=== PATIENT | female | born 1985 | race Caucasian/White ===

== ENCOUNTER 2016-03-06 20:20 | Inpatient (IN) | payer BC ==
[~2016-03-06] VITALS: Ht 170.2 cm; Wt 97.7 kg
[~2016-03-06 20:20] MED LIST: BACTRIM DS 8001 TAB PO; BUSPAR DIVIDOSE15 MG PO; BUSPAR5 MG PO; CEPHALEXIN500 M1 PO; IBU800 M1 PO; IRON TABLETS325 MG PO; MOTRIN 600600 MG/TAB PO; PERCOCET 325 MG1 TA2 PO; PRENATABS RX1 TAB PO; ZANTAC 7575 MG PO; ZOLOFT 100MG100 MG PO
[2016-03-06 21:15] LABS: BASO % 0.4 % (0.0-2.0); EOS # 0.3 (0.0-0.7); EOS % 4.2 % (0-4.0); GRAN # 5.2 (1.4-6.5); GRAN % 65.3 % (42.2-75.2); HEMOGLOBIN 8.8 g/dl (12.5-16.0); LYMPH # 1.9 (1.2-3.4); LYMPH % 23.3 % (20.0-51.0); MEAN CELL VOLUME 95 fl (80.0-100.0); MEAN CORPUSCULAR HEMOGLOBIN 31 pg (27.0-31.0); MEAN CORPUSCULAR HGB CONC 33 g/dl (33.0-37.0); MEAN PLATELET VOLUME 9.8 fl (7.4-10.4); MONO # 0.5 (0.1-0.6); MONO % 6.3 % (1.7-9.3); PLATELET COUNT 302 K/mm3 (130-400); RED BLOOD COUNT 2.83 M/mm3 (4.10-5.30); REDCELL DISTRIBUTION WIDTH-CV 14.3 % (11.5-14.5); WHITE BLOOD COUNT 7.9 K/mm3 (4.8-10.8)
[2016-03-06 21:26] LABS: ADJUSTED CALCIUM 9.6 mg/dL (8.4-10.2); ALBUMIN 3.1 gm/dL (3.5-5.0); BILIRUBIN,TOTAL 0.8 mg/dL (0.0-1.0); CALCIUM 8.9 mg/dL (8.4-10.2); CREATININE, serum 0.76 mg/dL (0.52-1.25); POTASSIUM 3.9 mmol/L (3.4-5.0); TOTAL PROTEIN 6.5 gm/dL (6.4-8.2)
[2016-03-06 22:00] VITALS: BP 130/70; PULSE 60; TEMP 97.9
[2016-03-07 03:00] VITALS: BP 123/56; PULSE 64; TEMP 98.8
[2016-03-07 07:43] VITALS: BP 125/75; PULSE 65; TEMP 98.1
[2016-03-07 09:54] LABS: BASO % 0.4 % (0.0-2.0); EOS # 0.3 (0.0-0.7); EOS % 4.7 % (0-4.0); GRAN # 4.9 (1.4-6.5); LYMPH # 1.2 (1.2-3.4); LYMPH % 17.3 % (20.0-51.0); MEAN CELL VOLUME 96 fl (80.0-100.0); MEAN CORPUSCULAR HGB CONC 32 g/dl (33.0-37.0); MEAN PLATELET VOLUME 9.5 fl (7.4-10.4); MONO # 0.4 (0.1-0.6); MONO % 5.2 % (1.7-9.3); PLATELET COUNT 272 K/mm3 (130-400); RED BLOOD COUNT 2.79 M/mm3 (4.10-5.30); REDCELL DISTRIBUTION WIDTH-CV 14.2 % (11.5-14.5); WHITE BLOOD COUNT 6.8 K/mm3 (4.8-10.8)
[2016-03-07 09:57] LABS: HEMATOCRIT 26.9 % (37.0-47.0); HEMOGLOBIN 8.6 g/dl (12.5-16.0); MEAN CORPUSCULAR HEMOGLOBIN 31 pg (27.0-31.0)
[2016-03-07 10:00] LABS: ADJUSTED CALCIUM 9.2 mg/dL (8.4-10.2); ALBUMIN 2.9 gm/dL (3.5-5.0); CALCIUM 8.3 mg/dL (8.4-10.2); CREATININE, serum 0.71 mg/dL (0.52-1.25); POTASSIUM 4.1 mmol/L (3.4-5.0); TOTAL PROTEIN 6.1 gm/dL (6.4-8.2)
[2016-03-07 12:16] VITALS: BP 122/60; PULSE 60; TEMP 98.5
[2016-03-07 16:35] VITALS: BP 130/61; PULSE 63; TEMP 98
[2016-03-07 21:00] VITALS: BP 121/56; PULSE 65; TEMP 98.2
[2016-03-08 03:30] VITALS: BP 118/55; PULSE 62; TEMP 98
[2016-03-08 07:24] LABS: BASO % 0.6 % (0.0-2.0); EOS # 0.3 (0.0-0.7); EOS % 5.5 % (0-4.0); GRAN # 2.8 (1.4-6.5); GRAN % 55.4 % (42.2-75.2); LYMPH # 1.5 (1.2-3.4); LYMPH % 29.9 % (20.0-51.0); MEAN CELL VOLUME 98 fl (80.0-100.0); MEAN CORPUSCULAR HGB CONC 32 g/dl (33.0-37.0); MEAN PLATELET VOLUME 9.5 fl (7.4-10.4); MONO # 0.4 (0.1-0.6); PLATELET COUNT 277 K/mm3 (130-400); RED BLOOD COUNT 2.78 M/mm3 (4.10-5.30); REDCELL DISTRIBUTION WIDTH-CV 14.3 % (11.5-14.5); WHITE BLOOD COUNT 5.1 K/mm3 (4.8-10.8)
[2016-03-08 07:27] LABS: HEMATOCRIT 27.1 % (37.0-47.0); HEMOGLOBIN 8.7 g/dl (12.5-16.0); MEAN CORPUSCULAR HEMOGLOBIN 31 pg (27.0-31.0)
[2016-03-08 07:34] LABS: ADJUSTED CALCIUM 9.5 mg/dL (8.4-10.2); ALBUMIN 2.9 gm/dL (3.5-5.0); CALCIUM 8.6 mg/dL (8.4-10.2); CREATININE, serum 0.75 mg/dL (0.52-1.25); POTASSIUM 4.4 mmol/L (3.4-5.0); TOTAL PROTEIN 6.1 gm/dL (6.4-8.2)
[2016-03-08 08:30] VITALS: BP 122/62; PULSE 74; TEMP 97.7
[2016-03-08] MEDS ORDERED: AMOXICILLIN 8751 TAB PO (08:38)
== END 2016-03-08 10:12 | disposition home or self-care (01) | DRG 776 ==
LOC: COL.ER 20:20 → OB 20:52
PROVIDERS: Emergency Medicine; Obstetrics & Gynecology
DX: O90.2 Hematoma of obstetric wound (principal); D62 Acute posthemorrhagic anemia; O86.0 Infection of obstetric surgical wound; L03.311 Cellulitis of abdominal wall; O90.81 Anemia of the puerperium; O99.345 Other mental disorders complicating the puerperium; F32.9 Major depressive disorder, single episode, unspecified; O99.73 Diseases of the skin and subcutaneous tissue complicating the puerperium; L81.7 Pigmented purpuric dermatosis
CPT/HCPCS: OP; G0378; J2543; J7030; J7050; J7120

== ENCOUNTER 2019-09-05 11:42 | Inpatient (IN) | payer BC ==
[2019-09-05] VITALS (26 sets, daily range): BP systolic 118–162; BP diastolic 69–96; PULSE 61–101; TEMP 97.7–98.4
[~2019-09-05] VITALS: Ht 170.3 cm; Wt 234.8 kg
[~2019-09-05 11:42] MED LIST changes: +AMOXICILLIN 8751 TAB PO
[2019-09-05] MEDS ORDERED: BUSPAR DIVIDOSE15 MG PO (13:05)
[2019-09-05] MEDS ORDERED: PRENATAL TABLET PO (13:06)
[2019-09-05 13:22] LABS: BASO % 0.2 % (0.0-2.0); EOS # 0.1 (0.0-0.7); EOS % 0.9 % (0-4.0); GRAN % 77.3 % (42.2-75.2); HEMATOCRIT 37.2 % (37.0-47.0); LYMPH # 1.7 (1.2-3.4); LYMPH % 14.8 % (20.0-51.0); MEAN CELL VOLUME 93 fl (80.0-100.0); MEAN CORPUSCULAR HEMOGLOBIN 32 pg (27.0-31.0); MEAN CORPUSCULAR HGB CONC 35 g/dl (33.0-37.0); MEAN PLATELET VOLUME 11.2 fl (7.4-10.4); MONO # 0.7 (0.1-0.6); MONO % 6.2 % (1.7-9.3); PLATELET COUNT 89 K/mm3 (130-400); RED BLOOD COUNT 4.01 M/mm3 (4.10-5.30); REDCELL DISTRIBUTION WIDTH-CV 13.8 % (11.5-14.5)
[2019-09-05 13:32] LABS: ALBUMIN 3.4 gm/dL (3.5-5.0); BILIRUBIN,TOTAL 0.8 mg/dL (0.0-1.0); CALCIUM 9.3 mg/dL (8.4-10.2); CREATININE, serum 0.66 (0.52-1.25); POTASSIUM 4.2 mmol/L (3.4-5.0); TOTAL PROTEIN 6.7 gm/dL (6.4-8.2)
[2019-09-05 13:37] LABS: INR 1.1 (0.8-3.0)
--- NOTE | 2019-09-05 16:52 | NUR ---
1530 patient complains of chest discomfort that feels like heartburn stated by patient. GI cocktail given po at this time per Dr order.
[2019-09-05 20:37] LABS: BASO % 0.3 % (0.0-2.0); EOS # 0.1 (0.0-0.7); EOS % 0.5 % (0-4.0); GRAN # 10.4 (1.4-6.5); GRAN % 80.4 % (42.2-75.2); LYMPH # 1.6 (1.2-3.4); LYMPH % 12.4 % (20.0-51.0); MEAN CELL VOLUME 93 fl (80.0-100.0); MEAN CORPUSCULAR HEMOGLOBIN 32 pg (27.0-31.0); MEAN CORPUSCULAR HGB CONC 35 g/dl (33.0-37.0); MEAN PLATELET VOLUME 11.1 fl (7.4-10.4); MONO # 0.8 (0.1-0.6); MONO % 5.9 % (1.7-9.3); PLATELET COUNT 59 K/mm3 (130-400); REDCELL DISTRIBUTION WIDTH-CV 13.8 % (11.5-14.5)
[2019-09-05 20:38] LABS: HEMATOCRIT 34.5 % (37.0-47.0)
[2019-09-05 20:55] LABS: ALBUMIN 2.8 gm/dL (3.5-5.0); BILIRUBIN,TOTAL 1.3 mg/dL (0.0-1.0); CALCIUM 8.2 mg/dL (8.4-10.2); CREATININE, serum 0.58 (0.52-1.25); MAGNESIUM 4.2 mg/dL (1.6-2.3); POTASSIUM 3.9 mmol/L (3.4-5.0); TOTAL PROTEIN 5.7 gm/dL (6.4-8.2)
[2019-09-06] VITALS (33 sets, daily range): BP systolic 127–1313; BP diastolic 42–89; PULSE 59–82; TEMP 97.8–98.1
[2019-09-06 07:22] LABS: HEMOGLOBIN 12.5 g/dl (12.5-16.0); MEAN CELL VOLUME 94 fl (80.0-100.0); MEAN CORPUSCULAR HEMOGLOBIN 33 pg (27.0-31.0); MEAN CORPUSCULAR HGB CONC 35 g/dl (33.0-37.0); MEAN PLATELET VOLUME 10.8 fl (7.4-10.4); PLATELET COUNT 51 K/mm3 (130-400); RED BLOOD COUNT 3.82 M/mm3 (4.10-5.30); REDCELL DISTRIBUTION WIDTH-CV 14.2 % (11.5-14.5)
[2019-09-06 07:23] LABS: ALBUMIN 2.9 gm/dL (3.5-5.0); BILIRUBIN,TOTAL 1.2 mg/dL (0.0-1.0); CALCIUM 7.3 mg/dL (8.4-10.2); CREATININE, serum 0.68 (0.52-1.25); POTASSIUM 4.1 mmol/L (3.4-5.0)
[2019-09-06 07:26] LABS: MAGNESIUM 5.4 mg/dL (1.6-2.3)
[2019-09-06 07:28] LABS: HEMATOCRIT 35.8 % (37.0-47.0)
[2019-09-06 07:44] LABS: BAND 11 % (0-10); LYMPHOCYTE 32 % (20.0-51.0); NEUTROPHILS 51 % (42.0-75.2); NUCLEATED RED BLOOD CELL 1 (0-6); PLATELET ESTIMATE DECREASED (NORMAL)
--- NOTE | 2019-09-06 10:49 | NUR ---
0930 PATIENT ASSISTED UP TO STANDING POSITION. DEBBIE CARE DONE AND WEIGHT TAKEN. ASSISTED BACK TO BED. TOLERTESS WELL
--- NOTE | 2019-09-06 11:56 | NUR ---
1155 MAG SULFATE TURNED OFF AT THIS TIME
--- NOTE | 2019-09-06 14:20 | NUR ---
1330 PATIENT UP TO BATHROOM, WITH ASSIST OF 2. MOVES SLOWLY BUT DOES WELL. PERICARE DONE. PATIENT TOLERATED WELL.
--- NOTE | 2019-09-06 16:25 | NUR ---
1600 PATEINT PUMPING AT THIS TIME
[2019-09-07] VITALS: BP 140/74; PULSE 72; TEMP 98.7
[2019-09-07 04:00] VITALS: BP 128/69; PULSE 77; TEMP 98.6
[2019-09-07 07:10] VITALS: BP 123/60; PULSE 72; TEMP 97.6
[2019-09-07 07:28] LABS: HEMOGLOBIN 12.2 g/dl (12.5-16.0); MEAN CELL VOLUME 94 fl (80.0-100.0); MEAN CORPUSCULAR HEMOGLOBIN 33 pg (27.0-31.0); MEAN CORPUSCULAR HGB CONC 35 g/dl (33.0-37.0); MEAN PLATELET VOLUME 11.5 fl (7.4-10.4); PLATELET COUNT 78 K/mm3 (130-400); RED BLOOD COUNT 3.73 M/mm3 (4.10-5.30); REDCELL DISTRIBUTION WIDTH-CV 14.3 % (11.5-14.5)
[2019-09-07 07:39] LABS: BILIRUBIN,TOTAL 1.2 mg/dL (0.0-1.0); CALCIUM 8.3 mg/dL (8.4-10.2); CREATININE, serum 0.62 (0.52-1.25); POTASSIUM 3.9 mmol/L (3.4-5.0); TOTAL PROTEIN 6.1 gm/dL (6.4-8.2)
[2019-09-07 07:45] LABS: HEMATOCRIT 35.2 % (37.0-47.0)
[2019-09-07] MEDS ORDERED: PERCOCET 325 MG1 TA2 PO (10:55)
[2019-09-07] MEDS ORDERED: ZOLOFT 100MG100 MG PO (10:55)
[2019-09-07] MEDS ORDERED: ADALAT CC60 MG PO (10:55)
[2019-09-07 11:55] VITALS: BP 127/66; PULSE 73
--- NOTE | 2019-09-07 15:30 | NUR ---
Patient requests RN to assess bruise noted above incision. Notes 7 cm x 2 cm light bruise. Will continue to monitor.
[2019-09-07 16:27] VITALS: BP 126/63; PULSE 77; TEMP 98.5
[2019-09-07 21:00] VITALS: BP 126/75; PULSE 81; TEMP 98.8
[2019-09-08 07:00] VITALS: BP 130/68; PULSE 74; TEMP 98.6
[2019-09-08 09:35] LABS: BASO % 0.2 % (0.0-2.0); EOS # 0.1 (0.0-0.7); EOS % 1.2 % (0-4.0); GRAN # 6.5 (1.4-6.5); GRAN % 71.6 % (42.2-75.2); HEMOGLOBIN 11.8 g/dl (12.5-16.0); LYMPH # 1.9 (1.2-3.4); LYMPH % 21.1 % (20.0-51.0); MEAN CELL VOLUME 96 fl (80.0-100.0); MEAN CORPUSCULAR HEMOGLOBIN 32 pg (27.0-31.0); MEAN CORPUSCULAR HGB CONC 34 g/dl (33.0-37.0); MEAN PLATELET VOLUME 11.1 fl (7.4-10.4); MONO # 0.5 (0.1-0.6); MONO % 5.3 % (1.7-9.3); PLATELET COUNT 112 K/mm3 (130-400); RED BLOOD COUNT 3.65 M/mm3 (4.10-5.30); REDCELL DISTRIBUTION WIDTH-CV 14.2 % (11.5-14.5)
[2019-09-08 09:45] LABS: BILIRUBIN,TOTAL 0.7 mg/dL (0.0-1.0); CALCIUM 8.8 mg/dL (8.4-10.2); CREATININE, serum 0.61 (0.52-1.25); POTASSIUM 3.7 mmol/L (3.4-5.0)
[2019-09-08 15:10] VITALS: BP 114/67; PULSE 82; TEMP 98.3
[2019-09-08 21:15] VITALS: BP 126/71; PULSE 81; TEMP 98.6
[2019-09-09 07:26] VITALS: BP 138/72; PULSE 78; TEMP 98.2
[2019-09-09] MEDS ORDERED: BUSPAR DIVIDOSE15 MG PO (09:01)
[2019-09-09] MEDS ORDERED: PERCOCET 325 MG1 TA2 PO (09:01)
[2019-09-09] MEDS ORDERED: ZOLOFT 100MG100 MG PO (09:01)
[2019-09-09] MEDS ORDERED: MOTRIN 800800 MG/TAB PO (09:01)
[2019-09-09] MEDS ORDERED: ADALAT CC60 MG PO (09:01)
== END 2019-09-09 15:35 | disposition home or self-care (01) | DRG 788 ==
LOC: OB 11:42 → LDR 12:50 → OB 12:50
PROVIDERS: Obstetrics & Gynecology; Student in an Organized Health Care Education/Training Program; ADMIT Obstetrics & Gynecology
PROC: 10D00Z1 Extraction of Products of Conception, Low, Open Approach (ICD-10-PCS; principal; 2019-09-05)
DX: O14.24 HELLP syndrome, complicating childbirth (principal); Z3A.37 37 weeks gestation of pregnancy; Z37.0 Single live birth; O34.219 Maternal care for unspecified type scar from previous cesarean delivery; L81.7 Pigmented purpuric dermatosis; O99.344 Other mental disorders complicating childbirth; F41.9 Anxiety disorder, unspecified
CPT/HCPCS: J0690; J2250; J2270; J2370; J2405; J2590; J3010; J3475; J7120